=== PATIENT | female | born 1955 | race Caucasian/White ===

== ENCOUNTER → 2022-11-05 | Outpatient (CLI) | payer MEDICARE ==
--- NOTE | 2022-11-06 06:11 | MR ---
EXAMINATION TYPE: MR brain wo/w con DATE OF EXAM: 11/05/2022 COMPARISON: NONE HISTORY: Partial loss of vision Left eye, blurred vision TECHNIQUE: Multiplanar, multisequence images of the brain and brainstem is performed without and with IV contras t, utilizing 5.5 mL intravenous Gadavist . FINDINGS: Diffusion weighted images demonstrate no evidence of a recent infarct or other diffusion ab normality. There is mild ventricular and sulcal prominence. Occasional small scattered focus of T2 h yperintensity is seen throughout the white matter bilaterally. Approximately 10-15 scattered tiny les ions are seen. No suspicious intraparenchymal blood products on the T2 star weighted images. Midline structures demonstrate normal morphology. Suprasellar cistern is maintained. The craniocervic al junction appears within normal limits. Post contrast images demonstrate no abnormal enhancement. The dural venous sinuses appear patent. The visualized sinuses are clear. The globes appear intact bi laterally. IMPRESSION: Mild diffuse age-related cerebral atrophy and probable chronic small vessel ischemic shook ge. No abnormal enhancement. No suspicious finding to account for patient's symptoms.
== END | disposition home or self-care (01) ==
LOC: RADMRIMAIN 18:17
PROVIDERS: ATTEND Ophthalmology
DX: G31.9 Degenerative disease of nervous system, unspecified (principal); H47.012 Ischemic optic neuropathy, left eye; H53.8 Other visual disturbances
CPT/HCPCS: 70553; A9585

== ENCOUNTER → 2022-11-26 | Outpatient (CLI) | payer MEDICARE ==
--- NOTE | 2022-11-26 16:09 | US ---
EXAMINATION TYPE: US carotid duplex BILAT DATE OF EXAM: 11/26/2022 COMPARISON: MR brain CLINICAL INDICATION: Female, 67 years old with history of H53.8 BLURRED VISION; Blurred vision left e ye. Hyperlipidemia, former smoker. TECHNIQUE: Carotid duplex ultrasound examination. Indirect Doppler criteria was utilized. FINDINGS: EXAM MEASUREMENTS: RIGHT: Peak Systolic Velocity (PSV) cm/sec ----- Right CCA: 97.4 ----- Right ICA: 145.9 ----- Right ECA: 116.0 ICA/CCA ratio: 1.5 RIGHT: End Diastole cm/sec ----- Right CCA: 28.1 ----- Right ICA: 48.9 ----- Right ECA: 12.4 LEFT: Peak Systolic Velocity (PSV) cm/sec ----- Left CCA: 101.8 ----- Left ICA: 117.3 ----- Left ECA: 82.5 ICA/CCA ratio: 1.2 LEFT: End Diastole cm/sec ----- Left CCA: 33.6 ----- Left ICA: 39.6 ----- Left ECA: 0.0 VERTEBRALS (direction of flow): Right Vertebral: Antegrade Left Vertebral: Antegrade Rhythm: Normal SOLAR ELECTRIC/PHOTOVOLTAIC INSTALLER NOTES: *Minimal plaque seen within the right bulb. *Elevated velocity noted within the ri ght ICA. Left vertebral velocity of 103.6 cm/s. Minimal atherosclerotic plaque within the right carotid bulb. Mildly elevated velocity within the rig ht ICA. IMPRESSION: 1. Less than 50% stenosis at the origin of the right internal carotid artery. 2. No hemodynamic significant stenosis of the left internal carotid artery. Criteria for Assigning % of Stenosis / Diameter reduction (Estimation based on the indirect measurements of the internal carotid artery velocities (ICA PSV). 1. Normal (no stenosis)=ICA PSV < 125 cm/s: ratio < 2.0: ICA EDV<40 cm/s. 2. Less than 50% stenosis=ICA PSV < 125 cm/s: ratio < 2.0: ICA EDV<40 cm/s. 3. 50 to 69% stenosis=ICA PSV of 125 to 230 cm/s: ration 2.0 ? 4.0: ICA EDV 40-100 cm/s. 4. Greater than 70% stenosis to near occlusion= ICA PSV > 230 cm/s: ratio > 4.0: ICA EDV > 100 cm/s. 5. Near occlusion= ICA PSV velocities may be low or undetectable: variable ratio and ICA EDV. 6. Total occlusion=unable to detect flow.
== END | disposition home or self-care (01) ==
LOC: RADUSWWP 15:26
PROVIDERS: ATTEND Ophthalmology
DX: I65.21 Occlusion and stenosis of right carotid artery (principal); H47.012 Ischemic optic neuropathy, left eye; H53.8 Other visual disturbances; E78.5 Hyperlipidemia, unspecified
CPT/HCPCS: 93880

== ENCOUNTER → 2024-07-11 | Outpatient (CLI) | payer MEDICARE ==
--- NOTE | 2024-07-12 08:55 | MM ---
Reason for Exam: Screening (asymptomatic). Last screening mammogram was performed 10 month(s) ago. Patient History: Menarche at age 12. First Full-Term at age 17. Postmenopausal. Risk Values: Va 5 year model risk: 1.2%. NCI Lifetime model risk: 3.9%. Prior Study Comparison: 07/09/2023 Bilateral Screening Mammogram, Unknown. 08/14/2023 Right Diagnostic Mammogram, Unknown. Tissue Density: The breasts are heterogeneously dense, which may obscure small masses. Findings: Analyzed By CAD. The pattern is symmetrical. There are a few scattered benign vascular and punctate calcifications present bilaterally. No significant interval change. No suspicious groups of microcalcifications, spiculated or lobular masses, architectural distortion or other secondary signs of malignancy are mammographically apparent. Overall Assessment: Benign, BI-RAD 2 Management: Screening Mammogram of both breasts in 1 year. A negative mammogram report should not preclude additional follow up of suspicious palpable abnormalities. Patient should continue monthly self breast exam. A clinical breast exam by your physician is recommended on an annual basis and results should be correlated with mammographic findings. Note on Va scores and lifetime risk: 1. A Va score greater than 3% is considered moderate risk. If this is the case, consider specialist referral to assess eligibility for a risk reducing agent. 2. If overall lifetime risk for the development of breast cancer is 20% or higher, the patient may qualify for future screening with alternating mammogram and breast MRI. [facility], , 07/12/2024 8:51 AM. Electronically signed and approved by: Sony Robin D.O. Radiologis
== END | disposition home or self-care (01) ==
LOC: RADMAMWWP 13:48
PROVIDERS: ATTEND Family Medicine
DX: Z12.31 Encounter for screening mammogram for malignant neoplasm of breast (principal); Z78.0 Asymptomatic menopausal state; R92.333 Mammographic heterogeneous density, bilateral breasts
CPT/HCPCS: 77063; 77067